=== PATIENT | female | born 2000 | race Caucasian/White ===

== ENCOUNTER 2019-10-29 15:59 | Emergency (ER) | payer OTHER, SELFPAY ==
[2019-10-29 16:06] VITALS: BP 141/72; PULSE 79; RESP 18; TEMP 37.1; O2SAT 100; BMI 21.4
[2019-10-29 16:42] LABS: Bacteria Urine None Seen
[2019-10-29 16:49] LABS: Add Manual Diff / Slide Review NO; Basophils Absolute Auto 0 /uL (0-100); Basophils Percent Auto 0.4 % (0-2); Eosinophils Absolute Auto 0 /uL (0-450); Eosinophils Percent Auto 0.3 % (2-4); Hematocrit 35.8 % (36-46); Hemoglobin 12.2 g/dL (12.0-16.0); Lymphocytes Absolute Auto 1300 /uL (1100-4500); Lymphocytes Percent Auto 15.5 % (25-40); Mean Corpuscular HGB Conc 34.1 % (30-36); Mean Corpuscular Hemoglobin 28.3 PG (26-34); Mean Corpuscular Volume 83.1 fL (80-100); Monocytes Absolute Auto 700 /uL (0-900); Monocytes Percent Auto 7.7 % (3-14); Neutrophils Absolute Auto 6600 /uL (1500-7000); Neutrophils Percent Auto 76.1 % (50-75); Platelet Count 147 X10^3/uL (150-400); Red Blood Cell Count 4.31 X10^6/uL (4.0-5.2); White Blood Cell Count 8.6 X10^3/uL (4.5-11.0)
[2019-10-29 16:53] LABS: Culture Indicated Urine Cult Not Indicated; RBC Urine 1-5/HPF (0-5/HPF); Squamous Epithelial Cell Urine 0-1 /HPF (0-5/HPF); WBC Urine 0-1/HPF (0-5/HPF)
[2019-10-29] MEDS: SODIUM CHLORIDE 0.9% 1,000 ML 1000 ML IV ×2 (16:57→18:31)
--- NOTE | 2019-10-29 17:03 | DI.RAD.S_ITS ---
PROCEDURE: XR ACUTE ABDOMEN SERIES INDICATIONS: abd pain TECHNIQUE: One view chest and two views of the abdomen were acquired. COMPARISON: None. FINDINGS: Surgical changes and devices: An IUD is seen at its expected location. Chest: Lungs are clear. Heart size is normal. No pleural effusions. No pneumoperitoneum. Abdomen: Bowel gas pattern is normal. No suspicious calcifications. Visualized solid organ contours appear normal. Bones: No suspicious bony lesions. IMPRESSION: A nonobstructive bowel gas pattern is seen. If clinically appropriate, please consider a repeat plain film study or a dedicated ultrasound or a CT of the abdomen and pelvis, if the patient's symptoms persist or worsen. Dictated by: Javad Dooley M.D. on 10/29/2019 at 16:43 Approved by: Javad Dooley M.D. on 10/29/2019 at 16:44
[2019-10-29 17:06] LABS: Alanine Aminotransferase 13 IU/L (<35); Albumin Globulin Ratio 1.4 (1.0-2.8); Alkaline Phosphatase 57 U/L (38-126); Amylase 99 U/L (30-110); Aspartate Aminotransferase 23 IU/L (14-36); BUN Creatinine Ratio 8.8 (6-22); Bilirubin Total 0.7 mg/dL (0.2-1.3); Blood Urea Nitrogen 6 mg/dL (7-17); Calcium 9.6 mg/dL (8.4-10.2); Carbon Dioxide 20 mmol/L (22-32); Chloride 106 mmol/L (98-107); Estimated Glomerular Filt Rate > 60.0 mL/min (>60); Globulin 3.5 g/dL (1.7-4.1); Glucose 81 mg/dL (70-100); HEMOLYSIS < 15 (0-50); Lipase 53 U/L (23-300); Sodium 138 mmol/L (137-145); Total Protein 8.5 g/dL (6.3-8.2)
[2019-10-29] MEDS: ONDANSETRON 4 MG/2 ML INJ IV (18:31)
--- NOTE | 2019-10-29 18:41 | DI.CT.S_ITS ---
PROCEDURE: CT ABDOMEN PELVIS W CON INDICATIONS: abd pain TECHNIQUE: After the administration of intravenous contrast, 5 mm thick sections acquired from the diaphragm to the symphysis. 5 mm coronal and sagittal reformats were acquired. For radiation dose reduction, the following was used: automated exposure control, adjustment of mA and/or kV according to patient size. COMPARISON: [facility], CR, XR ACUTE ABDOMEN SERIES, 10/29/2019, 17:11. FINDINGS: Image quality: Excellent. ABDOMEN: Lung bases: Lung bases are clear. Heart size is normal. Solid organs: Liver is somewhat prominent in size. Gallbladder is unremarkable. Biliary system is non dilated. Pancreas enhances normally. Spleen is normal in size and enhancement. No adrenal nodules. Kidneys demonstrate normal size and enhancement, without hydronephrosis. Peritoneum and bowel: Bowel loops demonstrate normal wall thickness and caliber. No free fluid or air. Appendix is probably visualized and appears normal in caliber. Nodes and vessels: No retroperitoneal or mesenteric adenopathy by size criteria. Aorta and inferior vena cava are normal in size. Miscellaneous: No ventral hernias. PELVIS: Genitourinary: Bladder wall thickness is normal. IUD is centered in the uterus. Right ovarian cyst which may be ruptured, (/). Small volume of fluid in the pelvis. The fluid tracks in the left paracolic gutter. Miscellaneous: No inguinal hernias or adenopathy. Bones: No suspicious bony lesions. No vertebral body compression fractures. IMPRESSION: 1. Small volume of fluid in the pelvis. Fluid appears to track along the right paracolic gutter. Probable rupture right ovarian cyst. 2. No bowel obstruction. No calcified gallstones. No kidney stones. Dictated by: Clovis Lee M.D. on 10/29/2019 at 19:41 Approved by: Clovis Lee M.D. on 10/29/2019 at 19:46
[2019-10-29 18:55] VITALS: BP 138/88; PULSE 75; RESP 14; O2SAT 99
--- NOTE | 2019-10-29 19:06 | ED.ABDPAIN ---
HPI - Abdominal Pain <RENEE Hobbs - Last Filed: 10/29/19 20:08> General Chief Complaint: Abdominal Pain Stated Complaint: ABD PAIN Time Seen by Provider: 10/29/19 16:07 Source: patient Mode of arrival: Ambulatory Limitations: no limitations History of Present Illness HPI narrative: The patient is a 19-year-old female current smoker presents with a chief complaint of abdominal pain in her left upper quadrant. She states it has been going on since Friday. She states she had nausea vomiting and diarrhea and went to an outside facility. They started on Lomotil and Zofran and did lab work. She presents because she still feels pain, nausea no vomiting. She stops smoking marijuana on Friday. She states prescribe that she was smoking every day. She denies any dysuria urgency or frequency. She states she is on her menstrual cycle. She states that the pain radiates around her flank. Related Data Previous Rx's Medication Instructions Recorded ondansetron 4 mg PO Q6H PRN #20 tab 10/29/19 Allergies Allergy/AdvReac Type Severity Reaction Status Date / Time No Known Drug Allergies Allergy Verified 10/29/19 16:05 Review of Systems <RENEE Hobbs - Last Filed: 10/29/19 20:08> Review of Systems Narrative: GENERAL: Denies chills, fatigue, malaise, fever, sweats. HEENT: Denies sinus pain, ear pain, sore throat, difficulty swallowing, dizziness. RESPIRATORY: Denies dyspnea, cough, wheezing, hemoptysis, sputum. CARDIOVASCULAR: Denies chest pain, palpitations, orthopnea, edema, GASTROINTESTINAL: See HPI : Denies dysuria, frequency, incontinence, hematuria, urinary retention. MUSCULOSKELETAL: denies weakness, joint pain, or bony pain SKIN: Denies rash, skin lesions, or other NEUROLOGIC: Denies weakness, headache, numbness, change in speech, confusion, seizures, incoordination. PSYCHIATRIC: No concerning psychosocial issues. 12 point review of systems is negative except for those stated above Patient History <RENEE Hobbs - Last Filed: 10/29/19 20:08> Social History Smoking Status: Current every day smoker Smoking Status: Current every day smoker tobacco type: vaping Substance Use Type: marijuana Exam <RENEE Hobbs - Last Filed: 10/29/19 20:08> Narrative Exam Narrative: GENERAL: This is a well-nourished, well-developed patient, no acute distress HEAD: Atraumatic. Normocephalic. No temporal or scalp tenderness. EYES: Pupils equal round and reactive. Extraocular motions intact. No scleral icterus. No injection or drainage. ENT: Nose without bleeding, purulent drainage or septal hematoma. Throat without erythema, tonsillar hypertrophy or exudate. Uvula midline. Airway patent. NECK: Trachea midline. No JVD or lymphadenopathy. Supple, nontender, no meningeal signs. CARDIOVASCULAR: Regular rate and rhythm RESPIRATORY: Clear to auscultation. Breath sounds equal bilaterally. No wheezes, rales, or rhonchi. No cough. No increased respiratory effort. GASTROINTESTINAL: Abdomen soft, pain to palpation left upper quadrant, nondistended. No hepato-splenomegaly, or palpable masses. No guarding. Active bowel sounds all 4 quadrants EXTREMITIES: No clubbing, cyanosis, or edema. No joint tenderness, effusion, or edema noted. BACK: Nontender without deformity or crepitance. No flank tenderness. NEURO: AOx3. SKIN: No rash or erythema on visible skin Initial Vital Signs Initial Vital Signs: Vital Signs Temperature 98.8 F 10/29/19 16:06 Pulse Rate 79 10/29/19 16:06 Respiratory Rate 18 10/29/19 16:06 Blood Pressure 141/72 H 10/29/19 16:06 Pulse Oximetry 100 10/29/19 16:06 <Domingo Boateng DO - Last Filed: 11/01/19 07:11> Initial Vital Signs Initial Vital Signs: Vital Signs Temperature 98.8 F 10/29/19 16:06 Pulse Rate 79 10/29/19 16:06 Respiratory Rate 18 10/29/19 16:06 Blood Pressure 141/72 H 10/29/19 16:06 Pulse Oximetry 100 10/29/19 16:06 Scores <RENEE Hobbs Last Filed: 10/29/19 20:08> GCS [place]ien[place] coma scale eye opening: Spontaneous [place] coma scale verbal response: Orientated Meghann coma scale motor response: Obey commands [place] coma scale total score: 15 Course <RENEE Hobbs - Last Filed: 10/29/19 20:08> Orders Ordered: Discontinued Medications Sodium Chloride (Normal Saline 0.9%) 1,000 mls @ 1,000 mls/hr IV BOLUS ONE Stop: 10/29/19 17:14 Last Infusion: 10/29/19 18:25 Dose: 0 mls/hr Documented by: Admin: 10/29/19 16:57 Dose: 1,000 mls/hr Documented by: TEJ Sodium Chloride (Normal Saline 0.9%) 500 mls @ 1,000 mls/hr IV BOLUS ONE Stop: 10/29/19 18:17 Last Admin: 10/29/19 18:34 Dose: Not Given Documented by: TEJ Sodium Chloride (Normal Saline 0.9%) 1,000 mls @ 1,000 mls/hr IV BOLUS ONE Stop: 10/29/19 19:23 Last Infusion: 10/29/19 20:00 Dose: 1,000 mls/hr Documented by: Admin: 10/29/19 18:31 Dose: 1,000 mls/hr Documented by: TEJ Ondansetron HCl (Zofran) 4 mg IV NOW ONE Stop: 10/29/19 18:18 Last Admin: 10/29/19 18:31 Dose: 4 mg Documented by: TEJ Vital Signs Vital signs: Vital Signs - 8 hr 10/29/19 16:06 10/29/19 18:55 Temperature 98.8 F Pulse Rate 79 75 Respiratory Rate 18 14 Blood Pressure 141/72 H Blood Pressure [Left Arm] 138/88 Pulse Oximetry 100 99 <Domingo Boateng DO - Last Filed: 11/01/19 07:11> Orders Ordered: Discontinued Medications Sodium Chloride (Normal Saline 0.9%) 1,000 mls @ 1,000 mls/hr IV BOLUS ONE Stop: 10/29/19 17:14 Last Infusion: 10/29/19 18:25 Dose: 0 mls/hr Documented by: Admin: 10/29/19 16:57 Dose: 1,000 mls/hr Documented by: TEJ Sodium Chloride (Normal Saline 0.9%) 500 mls @ 1,000 mls/hr IV BOLUS ONE Stop: 10/29/19 18:17 Last Admin: 10/29/19 18:34 Dose: Not Given Documented by: TEJ Sodium Chloride (Normal Saline 0.9%) 1,000 mls @ 1,000 mls/hr IV BOLUS ONE Stop: 10/29/19 19:23 Last Infusion: 10/29/19 20:00 Dose: 1,000 mls/hr Documented by: Admin: 10/29/19 18:31 Dose: 1,000 mls/hr Documented by: TEJ Ondansetron HCl (Zofran) 4 mg IV NOW ONE Stop: 10/29/19 18:18 Last Admin: 10/29/19 18:31 Dose: 4 mg Documented by: TEJ Vital Signs Vital signs: Vital Signs - 8 hr 10/29/19 16:06 10/29/19 18:55 Temperature 98.8 F Pulse Rate 79 75 Respiratory Rate 18 14 Blood Pressure 141/72 H Blood Pressure [Left Arm] 138/88 Pulse Oximetry 100 99 MDM - Abdominal Pain <RENEE Hobbs - Last Filed: 10/29/19 20:08> Differential Diagnosis Differential diagnosis: Likely abdominal pain, acute appendicitis, calculus of kidney, constipation and diverticulitis Medical Records Attestation: I reviewed the patient's medical records. Lab Data Result diagrams: 10/29/19 16:40 10/29/19 16:40 Labs: Lab Results 10/29/19 10/29/19 10/29/19 Range/Units 16:35 16:40 16:40 WBC 8.6 (4.5-11.0) X10^3/uL RBC 4.31 (4.0-5.2) X10^6/uL Hgb 12.2 (12.0-16.0) g/dL Hct 35.8 L (36-46) % MCV 83.1 (80-100) fL MCH 28.3 (26-34) PG MCHC 34.1 (30-36) % RDW 15.0 H (11.6-14.8) % Plt Count 147 L (150-400) X10^3/uL Neut % (Auto) 76.1 H (50-75) % Lymph % (Auto) 15.5 L (25-40) % [place] % (Auto) 7.7 (3-14) % Eos % (Auto) 0.3 L (2-4) % Baso % (Auto) 0.4 (0-2) % Neut # (Auto) 6600 (5251-6618) /uL Lymph # (Auto) 1300 (9745-3597) /uL [place] # (Auto) 700 (0-900) /uL Eos # (Auto) 0 (0-450) /uL Baso # (Auto) 0 (0-100) /uL Sodium 138 (137-145) mmol/L Potassium 4.0 (3.4-5.1) mmol/L Chloride 106 (98-107) mmol/L Carbon Dioxide 20 L (22-32) mmol/L BUN 6 L (7-17) mg/dL Creatinine 0.68 (0.52-1.04) mg/dL Estimated GFR > 60.0 (>60) mL/min BUN/Creatinine Ratio 8.8 (6-22) Glucose 81 (70-100) mg/dL Calcium 9.6 (8.4-10.2) mg/dL Total Bilirubin 0.7 (0.2-1.3) mg/dL AST 23 (14-36) IU/L ALT 13 (<35) IU/L Alkaline Phosphatase 57 (38-126) U/L Total Protein 8.5 H (6.3-8.2) g/dL Albumin 5.0 (3.5-5.0) g/dL Globulin 3.5 (1.7-4.1) g/dL Albumin/Globulin Ratio 1.4 (1.0-2.8) Amylase 99 (30-110) U/L Lipase 53 (23-300) U/L Urine RBC 1-5/hpf (0-5/HPF) Urine WBC 0-1/hpf (0-5/HPF) Ur Squamous Epith Cells 0-1 /hpf (0-5/HPF) Urine Bacteria None seen (None) Ur Culture Indicated? Cult not indicated Point of care testing: Point of Care Testing Test Results Negative Urine Dip Bedside Urine Glucose Negative Bedside Urine Bilirubin - Negative Bedside Urine Ketone ++ 40 Urine Specific [place] 1.005 Bedside Urine Occult Blood +++ Bedside Urine pH 6.0 Bedside Urine Protein - Negative Bedside Urine Urobilinogen - Negative Bedside Urine Nitrite - Negative Bedside Urine Leukocytes - Negative Esterase Imaging Data Abdominal x-ray: Radiologist's Impression: [address] [place] [id number] XRay Report Signed Patient: Myesha Dias [facility]#: [id number] : 2000Acct:[id number] Age/Sex: 19 / FDate of Service: 10/29/19 Loc: ED Accession Number: [id number] Procedure: XR acute abdomen series Ordering Provider: Hayley Faustin-ELDA PROCEDURE: XR ACUTE ABDOMEN SERIES INDICATIONS: abd pain TECHNIQUE: One view chest and two views of the abdomen were acquired. COMPARISON: None. FINDINGS: Surgical changes and devices: An IUD is seen at its expected location. Chest: Lungs are clear. Heart size is normal. No pleural effusions. No pneumoperitoneum. Abdomen: Bowel gas pattern is normal. No suspicious calcifications. Visualized solid organ contours appear normal. Bones: No suspicious bony lesions. IMPRESSION: A nonobstructive bowel gas pattern is seen. If clinically appropriate, please consider a repeat plain film study or a dedicated ultrasound or a CT of the abdomen and pelvis, if the patient's symptoms persist or worsen. Dictated by: Javad Dooley M.D. on 10/29/2019 at 16:43 Approved by: Javad Dooley M.D. on 10/29/2019 at 16:44 CT scan - abdomen/pelvis: Radiologist's Impression: [address] [place] [id number] Scan Report Signed Patient: Myesha Dias [facility]#: [id number] : 2000Acct:[id number] Age/Sex: 19 / FDate of Service: 10/29/19 Loc: ED Accession Number: [id number] Procedure: CT abdomen pelvis w con Ordering Provider: Hayley aFustin PROCEDURE: CT ABDOMEN PELVIS W CON INDICATIONS: abd pain TECHNIQUE: After the administration of intravenous contrast, 5 mm thick sections acquired from the diaphragm to the symphysis. 5 mm coronal and sagittal reformats were acquired. For radiation dose reduction, the following was used: automated exposure control, adjustment of mA and/or kV according to patient size. COMPARISON: [facility], XR ACUTE ABDOMEN SERIES, 10/29/2019, 17:11. FINDINGS: Image quality: Excellent. ABDOMEN: Lung bases: Lung bases are clear. Heart size is normal. Solid organs: Liver is somewhat prominent in size. Gallbladder is unremarkable. Biliary system is non dilated. Pancreas enhances normally. Spleen is normal in size and enhancement. No adrenal nodules. Kidneys demonstrate normal size and enhancement, without hydronephrosis. Peritoneum and bowel: Bowel loops demonstrate normal wall thickness and caliber. No free fluid or air. Appendix is probably visualized and appears normal in caliber. Nodes and vessels: No retroperitoneal or mesenteric adenopathy by size criteria. Aorta and inferior vena cava are normal in size. Miscellaneous: No ventral hernias. PELVIS: Genitourinary: Bladder wall thickness is normal. IUD is centered in the uterus. Right ovarian cyst which may be ruptured, (09/19). Small volume of fluid in the pelvis. The fluid tracks in the left paracolic gutter. Miscellaneous: No inguinal hernias or adenopathy. Bones: No suspicious bony lesions. No vertebral body compression fractures. IMPRESSION: 1. Small volume of fluid in the pelvis. Fluid appears to track along the right paracolic gutter. Probable rupture right ovarian cyst. 2. No bowel obstruction. No calcified gallstones. No kidney stones. Dictated by: Clovis Lee M.D. on 10/29/2019 at 19:41 Approved by: Clovis Lee M.D. on 10/29/2019 at 19:46 MDM Narrative Medical decision making narrative: The patient is a 19-year-old female who presents with a chief complaint of persistent nausea, no vomiting and continued abdominal pain. She denies pain throughout her stay in the emergency department, often falling asleep at times. Lab work is reassuring, x-rays reassuring, however patient has had repeat visits for this with new further imaging. Thus we obtained a CT scan which showed an ovarian cyst. She does not have lower abdominal pain, has normal urinalysis as she is menstruating and no . I discussed at length the importance of following up with primary care provider. She requested a refill of Zofran which I gave her. I did discuss at length not smoking marijuana and the cyclic nausea and vomiting affects that can happen from smoking marijuana. Patient and and have no questions or concerns upon discharge and state understanding of return precautions as well as follow-up care. Patient has tolerated p.o. fluids during her stay in the emergency department <Domingo Boateng, - Last Filed: 11/01/19 07:11> Lab Data Labs: Lab Results 10/29/19 10/29/19 10/29/19 Range/Units 16:35 16:40 16:40 WBC 8.6 (4.5-11.0) X10^3/uL RBC 4.31 (4.0-5.2) X10^6/uL Hgb 12.2 (12.0-16.0) g/dL Hct 35.8 L (36-46) % MCV 83.1 (80-100) fL MCH 28.3 (26-34) PG MCHC 34.1 (30-36) % RDW 15.0 H (11.6-14.8) % Plt Count 147 L (150-400) X10^3/uL Neut % (Auto) 76.1 H (50-75) % Lymph % (Auto) 15.5 L (25-40) % [place] % (Auto) 7.7 (3-14) % Eos % (Auto) 0.3 L (2-4) % Baso % (Auto) 0.4 (0-2) % Neut # (Auto) 6600 (7595-5466) /uL Lymph # (Auto) 1300 (2109-5028) /uL [place] # (Auto) 700 (0-900) /uL Eos # (Auto) 0 (0-450) /uL Baso # (Auto) 0 (0-100) /uL Sodium 138 (137-145) mmol/L Potassium 4.0 (3.4-5.1) mmol/L Chloride 106 (98-107) mmol/L Carbon Dioxide 20 L (22-32) mmol/L BUN 6 L (7-17) mg/dL Creatinine 0.68 (0.52-1.04) mg/dL Estimated GFR > 60.0 (>60) mL/min BUN/Creatinine Ratio 8.8 (6-22) Glucose 81 (70-100) mg/dL Calcium 9.6 (8.4-10.2) mg/dL Total Bilirubin 0.7 (0.2-1.3) mg/dL AST 23 (14-36) IU/L ALT 13 (<35) IU/L Alkaline Phosphatase 57 (38-126) U/L Total Protein 8.5 H (6.3-8.2) g/dL Albumin 5.0 (3.5-5.0) g/dL Globulin 3.5 (1.7-4.1) g/dL Albumin/Globulin Ratio 1.4 (1.0-2.8) Amylase 99 (30-110) U/L Lipase 53 (23-300) U/L Urine RBC 1-5/hpf (0-5/HPF) Urine WBC 0-1/hpf (0-5/HPF) Ur Squamous Epith Cells 0-1 /hpf (0-5/HPF) Urine Bacteria None seen (None) Ur Culture Indicated? Cult not indicated Point of care testing: Point of Care Testing Test Results Negative Urine Dip Bedside Urine Glucose Negative Bedside Urine Bilirubin - Negative Bedside Urine Ketone ++ 40 Urine Specific [place] 1.005 Bedside Urine Occult Blood +++ Bedside Urine pH 6.0 Bedside Urine Protein - Negative Bedside Urine Urobilinogen - Negative Bedside Urine Nitrite - Negative Bedside Urine Leukocytes - Negative Esterase Discharge Plan Departure Patient Disposition: Home Clinical Impression: Cyst of right ovary Abdominal pain Qualifiers: Abdominal location: generalized Qualified Code(s): R10.84 - Generalized abdominal pain Discharge Date/Time: 10/29/19 20:11 Instructions: DI for Ovarian Cyst, DI for Abdominal Pain-Adult Activity Restrictions/Additional Instructions: Thank you for trusting us with your care today. As I discussed, your CT shows no evidence of bowel obstruction, appendicitis, or other acute findings such as gallbladder or spleen issues. Your IUD is centered in the uterus The CT does show the possibility of a ruptured right ovarian cyst. Please follow-up with primary care provider in the next few days. I sent a prescription of Zofran to [facility] in [place] Please come back to the emergency department for any acute concerns Prescriptions: New ondansetron 4 mg tablet,disintegrating 4 mg PO Q6H PRN (Reason: nausea and vomiting) Qty: 20 RF: 0 <Domingo Boateng, DO - Last Filed: 11/01/19 07:11> Cosign ED Attending Cosignature Attestation: Dr Boateng Co-Sign Statement: I was available for consultation during this patient's emergency department visit. This chart is signed by myself for administrative purposes only. I did not have direct contact with this patient during this visit. They were seen independently by the APC.
[2019-10-29 20:11] VITALS: BP 124/42; PULSE 98; RESP 16; O2SAT 92
== END 2019-10-29 20:11 | disposition home or self-care (01) ==
PROVIDERS: Emergency Provider Nurse Practitioner Family
DX: R10.12 Left upper quadrant pain (principal); N83.201 Unspecified ovarian cyst, right side; R11.0 Nausea
CPT/HCPCS: 36415; 74022; 74177; 80053; 81003; 81015; 81025; 82150; 83690; 85025; 96361; 96374; 99284; J2405